=== PATIENT | male | born 1995 | race American Indian/Alaskan Native ===

== ENCOUNTER 2020-07-13 02:34 | Emergency (ER) | payer SELFPAY ==
--- NOTE | 2020-07-13 04:39 | XRay Report ---
CHEST 1 VIEW INDICATION / CLINICAL INFORMATION: Chest Pain. FINDINGS: SUPPORT DEVICES: None. HEART / MEDIASTINUM: No significant abnormality. LUNGS / PLEURA: No significant pulmonary or pleural abnormality. No pneumothorax. ADDITIONAL FINDINGS: No significant additional findings. IMPRESSION: 1. No acute findings. Signer Name: Mark Stephenson MD Signed: 07/13/2020 4:35 AM Workstation Name: [id number]
[2020-07-13 05:14] LABS: Basophils % (Auto) 0.2 % (0.0-1.8); Hemoglobin 16.5 gm/dl (11.8-15.2); Lymphocytes % (Auto) 8.8 % (13.4-35.0); Mean Corpuscular HGB Conc 33 % (32-34); Mean Corpuscular Volume 80 fl (84-94); Monocytes # (Auto) 0.9 K/mm3 (0.0-0.8); Monocytes % (Auto) 7.3 % (0.0-7.3); Platelet Count 384 K/mm3 (140-440); Red Blood Count 6.23 M/mm3 (3.65-5.03)
[2020-07-13 05:29] LABS: Alanine Aminotransferase 14 units/L (7-56); Albumin 5.4 g/dL (3.9-5); BUN/Creatinine Ratio 10; Blood Urea Nitrogen 11 mg/dL (9-20); Calcium 10.9 mg/dL (8.4-10.2); Hemolysis Index 20
[2020-07-13] MEDS ORDERED: ONDANSETRON 4 MG/2 ML INJ IV ONE (06:46)
[2020-07-13] MEDS ORDERED: fentaNYL 100 MCG/2 ML INJ IV ONE (06:46)
[2020-07-13] MEDS ORDERED: SODIUM CHLORIDE 0.9% 1000 ML 1,000 ML IV ONE ×2 (06:47)
--- NOTE | 2020-07-13 06:51 | Emergency Department Report ---
HPI - General Chief Complaint: Abdominal Pain Time Seen by Provider: 07/13/20 06:40 - [facility] HPI: Room 5 The patient is a 25-year-old male present with a chief complaint of nausea vomiting and abdominal pain. Patient states for the past 3 days he has had a constant sharp and burning diffuse abdominal and chest pain. Patient states he has had intractable nausea and vomiting for the same time. Patient denies diarrhea or fever. Patient denies cough or contact with known Covid positive patients. Patient also complains of low back pain. Patient currently gives his pain a score of 10/10 ED Past Medical Hx - Past Medical History Previous Medical History?: Yes Additional medical history: Irritable Bowel Syndrome - Surgical History Past Surgical History?: No - Family History Family history: no significant - Social History Smoking Status: Never Smoker Substance Use Type: Alcohol (Occasional), Marijuana - Medications Home Medications: Home Medications Medication Instructions Recorded Confirmed Last Taken Type No Known Home Medications [No 07/13/20 07/13/20 Unknown History Reported Home Medications] ED Review of Systems ROS: Stated complaint: ABDOMINAL PAIN Other details as noted in HPI Constitutional: denies: fever Eyes: denies: eye pain ENT: denies: ear pain Respiratory: no symptoms reported Cardiovascular: chest pain Endocrine: no symptoms reported Gastrointestinal: abdominal pain, nausea, vomiting. denies: diarrhea Genitourinary: denies: dysuria Musculoskeletal: back pain Neurological: denies: headache Physical Exam - Physical Exam Vital Signs: Vital Signs 07/13/20 03:34 Temperature 97.5 F L Pulse Rate 92 H Respiratory 17 Rate Blood Pressure 120/76 O2 Sat by Pulse 96 Oximetry Physical Exam: GENERAL: The patient is well-developed well-nourished male lying on stretcher not appearing to be in acute distress. [] HEENT: Normocephalic. Atraumatic. Extraocular motions are intact. Patient has moist mucous membranes. NECK: Supple. Trachea midline CHEST/LUNGS: Clear to auscultation. There is no respiratory distress noted. HEART/CARDIOVASCULAR: Regular. There is no tachycardia. There is no gallop rub or murmur. ABDOMEN: Abdomen is soft, with diffuse discomfort to palpation. There is no rebound or guarding. Patient has normal bowel sounds. There is no abdominal distention. SKIN: There is no rash. There is no edema. There is no diaphoresis. NEURO: The patient is awake, alert, and oriented. The patient is cooperative. The patient has normal speech MUSCULOSKELETAL: There is no evidence of acute injury. ED Course Vital Signs 07/13/20 03:34 Temperature 97.5 F L Pulse Rate 92 H Respiratory 17 Rate Blood Pressure 120/76 O2 Sat by Pulse 96 Oximetry ED Medical Decision Making - Lab Data Result diagrams: 07/13/20 03:50 07/13/20 03:50 - Radiology Data Radiology results: report reviewed (CT abdomen pelvis, chest x-ray), image reviewed (CT abdomen pelvis, chest x-ray) interpreted by me: Chest x-ray-no focal infiltrates, no pneumothorax, no foreign body seen [facility] [address] [place] [id number] Cat Scan Report Signed Patient: TROY WOOD MR#: [id number] : 1995 Acct:[id number] Age/Sex: 25 / M ADM Date: 07/13/20 Loc: ED Attending Dr: Ordering Physician: NESHA CASTAÑEDA MD Date of Service: 07/13/20 Procedure(s): CT abdomen pelvis w con Accession Number(s): [id number] cc: NESHA CASTAÑEDA MD CT ABDOMEN AND PELVIS WITH CONTRAST HISTORY: Diffuse abdominal pain with nausea and vomiting COMPARISON: None. TECHNIQUE: Axial CT images were obtained through the abdomen and pelvis after 100 cc of Omnipaque 300 intravenously. Sagittal and coronal reformatted images. All CT scans at this location are performed using CT dose reduction for ALARA by means of automated exposure control. FINDINGS: CT ABDOMEN: Lung Bases: Clear. Liver: No significant abnormality. Biliary: No significant abnormality. Spleen: No significant abnormality. Unenlarged. Pancreas: No significant abnormality. Adrenals: No significant abnormality. Kidneys: No significant abnormality. Lymphatics: No lymphadenopathy. Vasculature: No significant abnormality. Bowel/Peritoneum: No significant abnormality. No free air. No free fluid. Normal appendix. CT PELVIS: : No si gnificant abnormality. Osseous Structures: No significant abnormality. Additional Findings: None IMPRESSION: No significant abnormality. Signer Name: Kyler Arrington Jr, MD Signed: 07/13/2020 8:41 AM Workstation Name: [id number] Transcribed By: TTR Dictated By: KYLER ARRINGTON JR, MD Electronically Authenticated By: KYLER ARRINGTON JR, MD Signed Date/Time: 07/13/2041 DD/ 7 TD/TT: [facility] [place] [facility] [address] [place] [address] XRay Report Signed Patient: TROY WOOD MR#: [id number] : 1995 Acct:[id number] Age/Sex: 25 / M ADM Date: 07/13/20 Loc: ED Attending Dr: Ordering Physician: ED MD FABIÁN Date of Service: 07/13/20 Procedure(s): XR chest 1V ap Accession Number(s): [id number] cc: ED MD FABIÁN Fluoro Time In Minutes: CHEST 1 VIEW INDICATION / CLINICAL INFORMATION: Chest Pain. FINDINGS: SUPPORT DEVICES: None. HEART / MEDIASTINUM: No significant abnormality. LUNGS / PLEURA: No significant pulmonary or pleural abnormality. No pneumothorax. ADDITIONAL FINDINGS: No significant additional findings. IMPRESSION: 1. No acute findings. Signer Name: Mark Stephenson MD Signed: 07/13/2020 4:35 AM Workstation Name: [id number] Transcribed By: Dictated By: Mark Stephenson MD Electronically Authentica trev By: Mark Stephenson MD Signed Date/Time: 07/13/20434 DD/ 3 TD/TT: - Differential Diagnosis Irritable bowel syndrome, gastritis, dehydration, partial small bowel obstr Critical care attestation.: If time is entered above; I have spent that time in minutes in the direct care of this critically ill patient, excluding procedure time. ED Disposition Clinical Impression: Acute abdominal pain, Nausea & vomiting Disposition: Z-07 ELOPED Is pt being admited?: No Does the pt Need Aspirin: No Condition: Stable Referrals: PRIMARY CARE, [Primary Care Provider] - 3-5 Days Time of Disposition: 10:39 (Patient eloped)
--- NOTE | 2020-07-13 08:46 | Cat Scan Report ---
CT ABDOMEN AND PELVIS WITH CONTRAST HISTORY: Diffuse abdominal pain with nausea and vomiting COMPARISON: None. TECHNIQUE: Axial CT images were obtained through the abdomen and pelvis after 100 cc of Omnipaque 300 intravenously. Sagittal and coronal reformatted images. All CT scans at this location are performed using CT dose reduction for ALARA by means of automated exposure control. FINDINGS: CT ABDOMEN: Lung Bases: Clear. Liver: No significant abnormality. Biliary: No significant abnormality. Spleen: No significant abnormality. Unenlarged. Pancreas: No significant abnormality. Adrenals: No significant abnormality. Kidneys: No significant abnormality. Lymphatics: No lymphadenopathy. Vasculature: No significant abnormality. Bowel/Peritoneum: No significant abnormality. No free air. No free fluid. Normal appendix. CT PELVIS: : No significant abnormality. Osseous Structures: No significant abnormality. Additional Findings: None IMPRESSION: No significant abnormality. Signer Name: Kyler Arrington Jr, MD Signed: 07/13/2020 8:41 AM Workstation Name: [id number]
[2020-07-13 10:29] VITALS: BP 123/68
== END 2020-07-13 10:42 | disposition left against medical advice (07) ==
LOC: ED 02:34
DX: R10.84 Generalized abdominal pain (principal); R11.2 Nausea with vomiting, unspecified; R07.89 Other chest pain
CPT/HCPCS: 36415; 71045; 74177; 80053; 83690; 85025; 93005; 96374; 96375; 99285; J2405; J3010; J7030; Q9967

== ENCOUNTER 2021-01-24 21:45 | Emergency (ER) | payer SELFPAY ==
[2021-01-24 21:57] VITALS: BP 123/80
[2021-01-25] MEDS ORDERED: HYOSCYAMINE SUBL 0.125 MG TAB SL ONE (00:29)
[2021-01-25] MEDS ORDERED: SODIUM CHLORIDE 0.9% 1000 ML 1,000 ML IV ONE (00:29)
[2021-01-25] MEDS ORDERED: ONDANSETRON 4 MG/2 ML INJ IV STA (00:29)
--- NOTE | 2021-01-25 02:52 | Emergency Department Report ---
ED Abdominal Pain HPI - General Chief Complaint: Abdominal Pain Stated Complaint: VOMITING;IBS Time Seen by Provider: 01/25/21 00:28 Source: patient Mode of arrival: Ambulatory Limitations: No Limitations - History of Present Illness Initial Comments: 25-year-old F [place] male with known history of IBS presents emerged department complaining of a flareup with pain radiating to his lower quadrants associated with vomiting diarrhea and nausea. Reports no fever, no hemoptysis no hematemesis hematochezia no chest pain or palpitation. Visible reports this occurs frequently multiple times per year requiring a cocktail of medication to avert the progression. States overall he feels his condition is slightly improved since being in emergency department. MD Complaint: abdominal pain -: Gradual, days(s) (3) Location: LLQ Radiation: none Migration to: no migration Severity: mild, moderate Quality: aching, dull Improves With: nothing Worsens With: nothing Associated Symptoms: nausea, vomiting, diarrhea (Improved) - Related Data Previous Rx's Medication Instructions Recorded Last Taken Type Ciprofloxacin HCl 500 mg PO BID #20 tablet 01/25/21 Unknown Rx Hyoscyamine Subl [Levsin Sl 0.125 0.25 mg SL Q4H PRN #20 tablet 01/25/21 Unknown Rx TAB] Ondansetron [Zofran Odt] 4 mg PO Q8HR #20 tab.rapdis 01/25/21 Unknown Rx metroNIDAZOLE [Flagyl] 500 mg PO Q12HR #20 tab 01/25/21 Unknown Rx Allergies Allergy/AdvReac Type Severity Reaction Status Date / Time acetaminophen Allergy Hives Verified 07/13/20 03:30 [From Tylenol-Codeine #3] codeine Allergy Hives Verified 07/13/20 03:30 [From Tylenol-Codeine #3] ED Review of Systems ROS: Stated complaint: VOMITING;IBS Other details as noted in HPI Comment: All other systems reviewed and negative ED Past Medical Hx - Past Medical History Additional medical history: Irritable Bowel Syndrome - Social History Smoking Status: Never Smoker - Medications Home Medications: Home Medications Medication Instructions Recorded Confirmed Last Taken Type Ciprofloxacin HCl 500 mg PO BID #20 tablet 01/25/21 Unknown Rx Hyoscyamine Subl [Levsin Sl 0.125 0.25 mg SL Q4H PRN #20 tablet 01/25/21 Unknown Rx TAB] Ondansetron [Zofran Odt] 4 mg PO Q8HR #20 tab.rapdis 01/25/21 Unknown Rx metroNIDAZOLE [Flagyl] 500 mg PO Q12HR #20 tab 01/25/21 Unknown Rx ED Physical Exam - General Limitations: No Limitations General appearance: alert, in no apparent distress - Head Head exam: Present: atraumatic, normocephalic - Eye Eye exam: Present: normal appearance, PERRL, EOMI. Absent: conjunctival injection Pupils: Present: normal accommodation - ENT ENT exam: Present: normal exam, mucous membranes moist - Neck Neck exam: Present: normal inspection - Respiratory Respiratory exam: Present: normal lung sounds bilaterally. Absent: respiratory distress - Cardiovascular Cardiovascular Exam: Present: regular rate, normal rhythm. Absent: systolic murmur, diastolic murmur, rubs, gallop - GI/Abdominal GI/Abdominal exam: Present: soft, normal bowel sounds - Rectal Rectal exam: Present: deferred - Extremities Exam Extremities exam: Present: normal inspection - Back Exam Back exam: Present: normal inspection - Neurological Exam Neurological exam: Present: alert, oriented X3 - Psychiatric Psychiatric exam: Present: normal affect, normal mood - Skin Skin exam: Present: warm, dry, intact, normal color. Absent: rash ED Course Vital Signs 01/24/21 21:55 Temperature 98.3 F Pulse Rate 67 Respiratory 16 Rate Blood Pressure 123/80 O2 Sat by Pulse 96 Oximetry ED Medical Decision Making - Medical Decision Making This patient presents with abdominal pain of unclear etiology. Their evaluation has not identified a emergent etiology for the abdominal pain. Specifically, given the very benign exam, normal laboratory studies, and lack of significant risk factors, I have a very low suspicion for appendicitis, ischemic bowel, bowel perforation, or any other life threatening disease. I have discussed with the patient the level of uncertainty with undifferentiated abdominal pain and clearly explained the need to follow-up as noted on the discharge instructions, or return to the Emergency Department immediately if the pain worsens, develops fever, persistent and uncontrollable vomiting, or for any new symptoms or concerns. I discussed with the patient that this presentation today for abdominal pain could represent a significant risk for an acute abdominal proce ss. Although the tests in the ED were essentially normal, there is still a possibility of a process such as appendicitis, diverticulitis, cholecystitis, ulcer, early bowel obstruction, mesenteric ischemia, kidney stone, or even kidney infection which could subsequently cause disability or . The patient understands that they must return within 24 hours for a recheck or see their physician within 24 hours for re-exam due to the possibility of significant surgical or medical process. Critical care attestation.: If time is entered above; I have spent that time in minutes in the direct care of this critically ill patient, excluding procedure time. ED Disposition Clinical Impression: Abdominal pain, Nausea vomiting and diarrhea Disposition: TO HOME OR SELFCARE Is pt being admited?: No Does the pt Need Aspirin: No Condition: Stable Instructions: Vomiting, Adult, Abdominal Pain, Adult, [id number], Nausea and Vomiting, Adult, Diarrhea, Adult, [id number] Prescriptions: Ciprofloxacin HCl 500 mg PO BID #20 tablet metroNIDAZOLE [Flagyl] 500 mg PO Q12HR #20 tab Hyoscyamine Subl [Levsin Sl 0.125 TAB] 0.25 mg SL Q4H PRN #20 tablet PRN Reason: abd pain Ondansetron [Zofran Odt] 4 mg PO Q8HR #20 tab.rajinder Referrals: PRIMARY CAREMD [Primary Care Provider] - 3-5 Days BRENDA VAUGHAN MD [Staff Physician] - 3-5 Days
== END 2021-01-25 03:10 | disposition home or self-care (01) ==
LOC: ED 21:45
DX: R10.32 Left lower quadrant pain (principal); R11.2 Nausea with vomiting, unspecified; R19.7 Diarrhea, unspecified; Z88.6 Allergy status to analgesic agent; Z88.5 Allergy status to narcotic agent; Z79.899 Other long term (current) drug therapy
CPT/HCPCS: 96361; 96374; 99283; J2405; J7030